=== PATIENT | female | born 1995 | race Caucasian/White ===

== ENCOUNTER 2019-10-24 13:25 | Emergency (ER) | payer BC ==
--- NOTE | 2019-10-24 14:52 | UC ---
[facility] HPI HPI Summary: 23-year-old female who did a telehealth visit via telephone. She works in a [employer] and she has had runny nose and head congestion for 3 days but no fever, no shortness of breath and occasional cough. She states that she "wants to be sure that I don't have this virus going around". Her next day to work as tomorrow. I referred her to the [facility] [employer] [facility] [employer] [facility] on [facility] in [place], [place]. [facility] PMH Infectious Disease History: No - Social History Alcohol Use: None Substance Use Type: Reports: None Smoking Status (MU): Never Smoked Tobacco [facility] Telehealth ROS All Other Systems Reviewed And Are Negative: Yes Constitutional: Negative Eyes: Negative - mildly Positive: Nasal Discharge Cardiovascular: Negative - mild mitral Positive: Cough - Occasional non-productive cough Gastrointestinal: Negative Musculoskeletal: Negative Skin: Negative Neurological/Mental Status: Negative Positive: Headache Psychological: Normal Telehealth PE Appearance: Positive: Well-Appearing, Alert and Oriented Neurological: Positive: Alert, Oriented to Person Place, Time - Pt mostly wanted information and had only minor URI symptoms. Psychiatric: Positive: Normal [facility] Course/Dx Assessment/Plan: I referred pt to the drive through [employer] [facility] [place] on [facility]. She needed to do this prior to her work shift at a [employer] in [place]. Provider Diagnoses: URI (upper respiratory infection) [facility] Disposition Provider Recommendation for Treatment: Urgent Care Telehealth Visit: Patient Consented Verbally to Telehealth Visit Telehealth Patient Statement: The patient should understand that they are communicating with their provider via a secure communication platform and that all the same privacy and confidentiality rules apply. They will also be responsible for copayments or coinsurances that apply to any Telehealth visit. Patient Identifiers: 2 Patient Identifiers Verified for Telehealth Visit Telehealth Visit Start Time: 14:35 Telehealth Visit End Time: 14:55 Telehealth Provider Attestation: The above services were appropriate to provide in a Telehealth setting.
== END 2019-10-24 15:04 | disposition home or self-care (01) ==
LOC: UCCORT 13:25
DX: J06.9 Acute upper respiratory infection, unspecified (principal)
CPT/HCPCS: 99211; G0463